=== PATIENT | male | born 1990 | race Asian ===

== ENCOUNTER 2018-10-19 21:50 | Emergency (ER) | payer MEDICAID, OTHER ==
[~2018-10-19] VITALS: Ht 167.6 cm; Wt 65.0 kg
[~2018-10-19 21:50] MED LIST: CLOB15OI17 TP; DIVA500T52 PO; DIVA500T69 PO; OLAN20TA5 PO; OLAN5TAB40 PO
[2018-10-19] MEDS ORDERED: ACETAMINOPHEN 325 MG TABLET PO ONE (23:30)
[2018-10-19] MEDS ORDERED: FLUP5 PO (23:32)
[2018-10-19] MEDS ORDERED: BISA10S PR (23:32)
[2018-10-19] MEDS ORDERED: IBUP-2070 PO (23:32)
[2018-10-19] MEDS ORDERED: [UNRECOGNIZED DRUG - CODE] TP (23:32)
[2018-10-19] MEDS ORDERED: CLOZ25TA4 PO (23:32)
[2018-10-19] MEDS ORDERED: FLUPH2.5I IM (23:32)
[2018-10-19] MEDS ORDERED: CITA-106 PO (23:32)
[2018-10-19] MEDS ORDERED: METH2.5 PO (23:32)
[2018-10-19] MEDS ORDERED: FE PR (23:32)
[2018-10-19] MEDS ORDERED: CLOZ100 PO (23:32)
[2018-10-19] MEDS ORDERED: FLUO15CR2 TP (23:32)
[2018-10-19] MEDS ORDERED: CHLO100T24 PO (23:32)
[2018-10-19] MEDS ORDERED: CLOB525T TP (23:32)
[2018-10-19] MEDS ORDERED: FISH1 PO (23:32)
[2018-10-19] MEDS ORDERED: HYDR30CR3 TP (23:32)
[2018-10-19] MEDS ORDERED: MOM30 PO (23:32)
[2018-10-19] MEDS ORDERED: FERR-89 PO (23:32)
[2018-10-19] MEDS ORDERED: TEMO15C TP (23:32)
[2018-10-19 23:56] LABS: BASOPHILS % (AUTO) 0.3 % (0.0-2.0); EOSINOPHILS % (AUTO) 0 % (1.0-6.0); HEMOGLOBIN 13.4 g/dL (13.5-17.5); LYMPHOCYTES # (AUTO) 1.1 K/uL (1.0-4.8); LYMPHOCYTES % (AUTO) 8.5 % (22.0-44.0); MEAN CORPUSCULAR HEMOGLOBIN 31.9 pg (26.0-34.0); MEAN CORPUSCULAR HGB CONC 34.4 G/dL (31.0-37.0); MEAN CORPUSCULAR VOLUME 93 fL (80-100); MONOCYTES # (AUTO) 0.7 K/uL (0.1-1.0); MONOCYTES % (AUTO) 5.5 % (2.0-9.0); NEUTROPHILS # (AUTO) 11.3 K/uL (1.8-7.7); PLATELET COUNT (AUTO) 171 K/uL (150-450); RED BLOOD CELL COUNT(AUTO) 4.21 MIL/uL (4.50-5.90); RED CELL DISTRIBUTION WIDTH 13.8 % (11.5-14.5)
[2018-10-20 00:01] LABS: NEUTROPHILS % (AUTO) 85.7 % (40.0-70.0)
[2018-10-20 00:23] LABS: INFLUENZA TYPE A NEGATIVE FOR TYPE A (NEGATIVE); INFLUENZA TYPE B NEGATIVE FOR TYPE B (NEGATIVE)
[2018-10-20 01:32] VITALS: BP 126/63
[2018-10-20] MEDS ORDERED: AZITHROMYCIN 250 MG TABLET PO ONE (01:45)
[2018-10-21] MEDS ORDERED: AMOX1TAB16 PO (18:53)
[2018-10-21] MEDS ORDERED: GENTOS OU (18:54)
== END 2018-10-20 02:00 | disposition home or self-care (01) ==
LOC: EMS 21:51
DX: H10.9 Unspecified conjunctivitis (principal); J40 Bronchitis, not specified as acute or chronic; R41.82 Altered mental status, unspecified; F99 Mental disorder, not otherwise specified; I10 Essential (primary) hypertension; Z88.8 Allergy status to other drugs, medicaments and biological substances
CPT/HCPCS: 87430; 87804

== ENCOUNTER 2018-10-21 18:41 | Emergency (ER) | payer OTHER ==
[~2018-10-21] VITALS: Ht 170.2 cm; Wt 67.3 kg
[~2018-10-21 18:41] MED LIST changes: +BISA10S PR; +CHLO100T24 PO; +CITA-106 PO; +CLOB525T TP; +CLOZ100 PO; +CLOZ25TA4 PO; +FE PR; +FERR-89 PO; +FISH1 PO; +FLUO15CR2 TP; +FLUP5 PO; +FLUPH2.5I IM; +HYDR30CR3 TP; +IBUP-2070 PO; +METH2.5 PO; +MOM30 PO; +TEMO15C TP; +[UNRECOGNIZED DRUG - CODE] TP
[2018-10-21] MEDS ORDERED: AMOX1TAB16 PO (18:53)
[2018-10-21] MEDS ORDERED: GENTOS OU (18:54)
[2018-10-21] MEDS ORDERED: SULFAMETHOX/TRIMETH DS 800-160 MG/TABLET PO ONE (19:15)
[2018-10-21] MEDS ORDERED: IBUPROFEN 400 MG TABLET PO ONE (19:30)
[2018-10-21 19:33] VITALS: BP 104/68
== END 2018-10-21 20:22 | disposition home or self-care (01) ==
LOC: EMS 18:42
DX: L03.211 Cellulitis of face (principal); L40.9 Psoriasis, unspecified; I10 Essential (primary) hypertension; Z88.8 Allergy status to other drugs, medicaments and biological substances; Z79.899 Other long term (current) drug therapy

== ENCOUNTER 2019-05-03 17:42 | Inpatient (IN) | payer OTHER ==
[~2019-05-03] VITALS: Ht 172.7 cm; Wt 71.3 kg
[~2019-05-03 17:42] MED LIST changes: -BISA10S PR; +BISA10SU11 PR; -CHLO100T24 PO; -CITA-106 PO; +DIVA-78 PO; -DIVA500T69 PO; -METH2.5 PO; -OLAN20TA5 PO; -OLAN5TAB40 PO
[2019-05-03] MEDS ORDERED: CITA-106 PO (17:54)
[2019-05-03] MEDS ORDERED: CHLO50I IM (17:54)
[2019-05-03] MEDS ORDERED: METH2.5 PO (17:54)
[2019-05-03 18:32] LABS: BASOPHILS % (AUTO) 0.6 % (0.0-2.0); EOSINOPHILS % (AUTO) 0.6 % (1.0-6.0); HEMATOCRIT 37.8 % (41-53); HEMOGLOBIN 12.4 g/dL (13.5-17.5); LYMPHOCYTES # (AUTO) 1.3 K/uL (1.0-4.8); LYMPHOCYTES % (AUTO) 19.2 % (22.0-44.0); MEAN CORPUSCULAR HEMOGLOBIN 31.1 pg (26.0-34.0); MEAN CORPUSCULAR HGB CONC 32.8 G/dL (31.0-37.0); MEAN CORPUSCULAR VOLUME 95 fL (80-100); MONOCYTES # (AUTO) 0.6 K/uL (0.1-1.0); MONOCYTES % (AUTO) 9.3 % (2.0-9.0); NEUTROPHILS # (AUTO) 4.8 K/uL (1.8-7.7); NEUTROPHILS % (AUTO) 70.3 % (40.0-70.0); PLATELET COUNT (AUTO) 199 K/uL (150-450); RED BLOOD CELL COUNT(AUTO) 3.97 MIL/uL (4.50-5.90); RED CELL DISTRIBUTION WIDTH 14.8 % (11.5-14.5)
[2019-05-03 18:43] LABS: ANION GAP 6 mmol/L (8-16); CALCIUM, TOTAL 9.8 mg/dL (8.8-10.5); CARBON DIOXIDE 31 mmol/L (22-29); CHLORIDE 102 mmol/L (98-107); GLOMERULAR FILTR. RATE CALC > 60 mL/min (>60); GLUCOSE,RANDOM 114 mg/dL (70-110); POTASSIUM 4.1 mmol/L (3.5-5.1); SODIUM SERUM 139 mmol/L (136-145); UREA NITROGEN, BLOOD 15 mg/dL (7-18)
[2019-05-03 18:49] LABS: B-TYPE NATRIURETIC PEPTIDE 9 pg/mL (0-100)
[2019-05-03 19:12] LABS: ALANINE AMINOTRANSFERASE 14 U/L (12-78); ALBUMIN 3.5 g/dL (3.4-5.0); ALKALINE PHOSPHATASE 55 U/L (46-116); ASPARTATE AMINOTRANSFERASE 15 U/L (15-37); BILIRUBIN,TOTAL 0.2 mg/dL (0.1-1.0); CREATINE KINASE, TOTAL ONLY 211 U/L (39-308); TOTAL PROTEIN, SERUM 7.6 g/dL (6.4-8.2); VALPROIC ACID 60 mcg/mL (50-100)
[2019-05-03 19:36] LABS: APPEARANCE,URINE CLEAR (CLEAR); BILIRUBIN,URINE NEGATIVE (NEGATIVE); GLUCOSE, URINE (UA) NEGATIVE (NEGATIVE); KETONES,URINE TRACE mg/dL (NEGATIVE); LEUKOCYTE ESTERASE ,URINE NEGATIVE (NEGATIVE); NITRATE,URINE NEGATIVE (NEGATIVE); OCCULT BLOOD,URINE NEGATIVE (NEGATIVE); PROTEIN,URINE NEGATIVE (NEGATIVE)
[2019-05-03 19:41] LABS: AMPHET/METH SCREEN,URINE NEGATIVE (NEGATIVE); BARBITURATE SCREEN, URINE NEGATIVE (NEGATIVE); BENZODIAZEPINES SCREEN,URINE NEGATIVE (NEGATIVE); CANNABINOID SCREEN,URINE NEGATIVE (NEGATIVE); COCAINE SCREEN,URINE NEGATIVE (NEGATIVE); METHADONE SCREEN, URINE NEGATIVE (NEGATIVE); OPIATE SCREEN,URINE NEGATIVE (NEGATIVE)
[2019-05-03 19:43] LABS: PHENCYCLIDINE SCREEN,URINE NEGATIVE (NEGATIVE)
[2019-05-03] MEDS ORDERED: ACETAMINOPHEN 325 MG TABLET PO PRN ×2 (21:00→21:45)
[2019-05-03] MEDS ORDERED: 0.9% SODIUM CHLORIDE 10 ML SYRINGE IVP PRN (21:00)
[2019-05-03] MEDS ORDERED: ONDANSETRON HCL 4 MG/2 ML VIAL IVP PRN (21:45)
[2019-05-03] MEDS ORDERED: BISACODYL 10 MG RECTAL RECTAL SUPPOSITORY PR PRN (21:45)
[2019-05-03] MEDS ORDERED: HYDROCODONE/ACETAMINOPHEN 5-325 MG TABLET PO PRN (21:45)
[2019-05-03] MEDS ORDERED: ZOLPIDEM TARTRATE 5 MG TABLET PO PRN (21:45)
[2019-05-03] MEDS ORDERED: MORPHINE SULFATE 2 MG/ML SYRINGE IVP PRN (21:45)
[2019-05-03] MEDS ORDERED: MAGNESIUM HYDROXIDE SUSPENSION 30 ML UDCUP PO PRN (21:45)
[2019-05-03 23:26] VITALS: BP 112/76
[2019-05-04] MEDS: HEPARIN SODIUM,PORCINE 5,000 UNITS/ML VIAL SQ SCH ×3 (01:11→16:00)
[2019-05-04 04:26] VITALS: BP 117/76
[2019-05-04 05:57] LABS: BASOPHILS % (AUTO) 0.8 % (0.0-2.0); EOSINOPHILS % (AUTO) 3.2 % (1.0-6.0); HEMATOCRIT 39.1 % (41-53); HEMOGLOBIN 12.8 g/dL (13.5-17.5); LYMPHOCYTES # (AUTO) 1.6 K/uL (1.0-4.8); LYMPHOCYTES % (AUTO) 30.5 % (22.0-44.0); MEAN CORPUSCULAR HEMOGLOBIN 31.4 pg (26.0-34.0); MEAN CORPUSCULAR HGB CONC 32.7 G/dL (31.0-37.0); MEAN CORPUSCULAR VOLUME 96 fL (80-100); MONOCYTES # (AUTO) 0.7 K/uL (0.1-1.0); MONOCYTES % (AUTO) 12.9 % (2.0-9.0); NEUTROPHILS # (AUTO) 2.8 K/uL (1.8-7.7); NEUTROPHILS % (AUTO) 52.6 % (40.0-70.0); PLATELET COUNT (AUTO) 205 K/uL (150-450); RED BLOOD CELL COUNT(AUTO) 4.07 MIL/uL (4.50-5.90); RED CELL DISTRIBUTION WIDTH 15.1 % (11.5-14.5)
[2019-05-04 06:23] LABS: ALANINE AMINOTRANSFERASE 17 U/L (12-78); ALBUMIN 3.3 g/dL (3.4-5.0); ALKALINE PHOSPHATASE 56 U/L (46-116); ANION GAP 8 mmol/L (8-16); ASPARTATE AMINOTRANSFERASE 18 U/L (15-37); BILIRUBIN,TOTAL 0.3 mg/dL (0.1-1.0); CALCIUM, TOTAL 9.2 mg/dL (8.8-10.5); CARBON DIOXIDE 30 mmol/L (22-29); CHLORIDE 105 mmol/L (98-107); CREATININE 0.68 mg/dL (0.60-1.30); GLOMERULAR FILTR. RATE CALC > 60 mL/min (>60); GLUCOSE,RANDOM 97 mg/dL (70-110); POTASSIUM 3.7 mmol/L (3.5-5.1); SODIUM SERUM 143 mmol/L (136-145); TOTAL PROTEIN, SERUM 7.1 g/dL (6.4-8.2); UREA NITROGEN, BLOOD 12 mg/dL (7-18)
[2019-05-04 08:09] VITALS: BP 120/79
[2019-05-04] MEDS: DOCUSATE SODIUM 100 MG CAPSULE PO SCH ×2 (08:19→20:29)
[2019-05-04] MEDS: FERROUS SULFATE 325 MG EC TABLET PO SCH (08:19)
[2019-05-04] MEDS: HYDROCORTISONE 2.5% 30 GM CREAM TP SCH ×2 (08:20→20:29)
[2019-05-04] MEDS: DIVALPROEX SODIUM 500 MG DR TABLET PO SCH (08:20)
[2019-05-04] MEDS: PANTOPRAZOLE SODIUM 40 MG DR TABLET PO SCH (08:20)
[2019-05-04] MEDS: FluPHENAZine HCL 5 MG TABLET PO SCH ×2 (08:20→20:29)
[2019-05-04] MEDS ORDERED: CLOBETASOL 0.05% 15 GM OINTMENT TP SCH (09:00)
[2019-05-04] MEDS ORDERED: CLOBETASOL 0.05% 60 GM OINTMENT TP SCH (09:05)
[2019-05-04] MEDS ORDERED: GADOBUTROL 1 MMOL/ML 10 ML VIAL IVP ONE (09:10)
[2019-05-04] MEDS: CLOBETASOL 0.05% 60 GM OINTMENT TP SCH ×2 (09:15→20:29)
[2019-05-04 12:00] VITALS: BP 128/96
[2019-05-04 16:19] VITALS: BP 125/80
[2019-05-04 19:28] VITALS: BP 125/89
[2019-05-04] MEDS ORDERED: CloZAPine 100 MG TABLET PO SCH (21:00)
[2019-05-04] MEDS ORDERED: DIVALPROEX SODIUM 500 MG ER TABLET PO SCH (21:00)
[2019-05-05] MEDS: HEPARIN SODIUM,PORCINE 5,000 UNITS/ML VIAL SQ SCH ×2 (00:07→08:24)
[2019-05-05 00:12] VITALS: BP 128/76
[2019-05-05 04:30] VITALS: BP 123/80
[2019-05-05 07:55] VITALS: BP 115/77
[2019-05-05] MEDS: CLOBETASOL 0.05% 60 GM OINTMENT TP SCH (08:24)
[2019-05-05] MEDS: FluPHENAZine HCL 5 MG TABLET PO SCH (08:24)
[2019-05-05] MEDS: FERROUS SULFATE 325 MG EC TABLET PO SCH (08:24)
[2019-05-05] MEDS: PANTOPRAZOLE SODIUM 40 MG DR TABLET PO SCH (08:24)
[2019-05-05] MEDS: DOCUSATE SODIUM 100 MG CAPSULE PO SCH (08:24)
[2019-05-05] MEDS: HYDROCORTISONE 2.5% 30 GM CREAM TP SCH (08:25)
[2019-05-05] MEDS: DIVALPROEX SODIUM 500 MG DR TABLET PO SCH (08:25)
[2019-05-05 12:11] VITALS: BP 115/67
== END 2019-05-05 15:15 | disposition home or self-care (01) | DRG 204 ==
LOC: EMS 17:43 → 5S 21:55
PROVIDERS: ADMIT Internal Medicine; ATTEND Internal Medicine
DX: R55 Syncope and collapse (principal); F20.0 Paranoid schizophrenia; I10 Essential (primary) hypertension; L30.9 Dermatitis, unspecified; L40.9 Psoriasis, unspecified; K59.00 Constipation, unspecified; D64.9 Anemia, unspecified
CPT/HCPCS: 70450; 70553; 87081; 93005; 93306; 93880; A9585; G0378; G0480; J1644

== ENCOUNTER 2019-07-28 12:50 | Inpatient (IN) | payer MEDICAID, OTHER ==
[~2019-07-28] VITALS: Ht 172.7 cm; Wt 74.4 kg
[~2019-07-28 12:50] MED LIST changes: +CHLO50I IM; +CITA-106 PO; -CLOB525T TP; +METH2.5 PO
[2019-07-28 15:47] LABS: BASOPHILS % (AUTO) 0.6 % (0.0-2.0); EOSINOPHILS % (AUTO) 2.7 % (1.0-6.0); HEMATOCRIT 39.1 % (41-53); LYMPHOCYTES % (AUTO) 35.5 % (22.0-44.0); MEAN CORPUSCULAR HEMOGLOBIN 31.2 pg (26.0-34.0); MEAN CORPUSCULAR HGB CONC 33.3 G/dL (31.0-37.0); MEAN CORPUSCULAR VOLUME 94 fL (80-100); MONOCYTES # (AUTO) 0.5 K/uL (0.1-1.0); MONOCYTES % (AUTO) 9.3 % (2.0-9.0); NEUTROPHILS # (AUTO) 2.9 K/uL (1.8-7.7); NEUTROPHILS % (AUTO) 51.9 % (40.0-70.0); PLATELET COUNT (AUTO) 212 K/uL (150-450); RED BLOOD CELL COUNT(AUTO) 4.17 MIL/uL (4.50-5.90); RED CELL DISTRIBUTION WIDTH 13.9 % (11.5-14.5)
[2019-07-28 16:18] LABS: ANION GAP 9 mmol/L (8-16); CARBON DIOXIDE 29 mmol/L (22-29); CHLORIDE 103 mmol/L (98-107); CREATININE 0.74 mg/dL (0.60-1.30); GLOMERULAR FILTR. RATE CALC > 60 mL/min (>60); GLUCOSE,RANDOM 104 mg/dL (70-110); POTASSIUM 4.1 mmol/L (3.5-5.1); SODIUM SERUM 141 mmol/L (136-145); UREA NITROGEN, BLOOD 16 mg/dL (7-18)
[2019-07-28 16:25] LABS: ALANINE AMINOTRANSFERASE 8 U/L (12-78); ALBUMIN 3.5 g/dL (3.4-5.0); ALKALINE PHOSPHATASE 49 U/L (46-116); ASPARTATE AMINOTRANSFERASE 17 U/L (15-37); BILIRUBIN,TOTAL 0.2 mg/dL (0.1-1.0); TOTAL PROTEIN, SERUM 7.5 g/dL (6.4-8.2)
[2019-07-28] MEDS ORDERED: CLOZ100 PO (17:28)
[2019-07-28] MEDS ORDERED: OLANZapine 5 MG RAPDIS TABLET PO ONE (17:30)
[2019-07-28] MEDS ORDERED: OLANZapine 5 MG RAPDIS TABLET PO PRN (18:30)
[2019-07-28] MEDS ORDERED: ZOLPIDEM TARTRATE 10 MG TABLET PO PRN (18:30)
[2019-07-28] MEDS ORDERED: LORazepam 2 MG TABLET PO PRN (18:30)
[2019-07-28 20:35] VITALS: BP 127/87
[2019-07-28] MEDS ORDERED: INFLUENZA VIRUS VACCINE QVS 2019-20 (3YR+)/PF 60 MCG/0.5 ML SYRINGE IM ONE (20:45)
[2019-07-28] MEDS ORDERED: ONDANSETRON HCL 4 MG TABLET PO PRN (21:15)
[2019-07-28] MEDS ORDERED: GuaiFENesin/D-METHORPHAN [SUGAR-FREE] 200-20MG/10 ML SYRUP UDCUP PO PRN (21:15)
[2019-07-28] MEDS ORDERED: PETROLATUM,WHITE 28 GM JELLY TP PRN (21:15)
[2019-07-28] MEDS ORDERED: LOPERAMIDE HCL 2 MG CAPSULE PO PRN (21:15)
[2019-07-28] MEDS ORDERED: MAG HYDROX/AL HYDROX/SIMETH ES 30 ML SUSPENSION UDCUP PO PRN (21:15)
[2019-07-28] MEDS ORDERED: MAGNESIUM HYDROXIDE SUSPENSION 30 ML UDCUP PO PRN (21:15)
[2019-07-28] MEDS ORDERED: CloNIDine HCL 0.1 MG TABLET PO PRN (21:15)
[2019-07-28] MEDS ORDERED: DOCUSATE SODIUM 100 MG CAPSULE PO PRN (21:15)
[2019-07-28] MEDS ORDERED: ACETAMINOPHEN 325 MG TABLET PO PRN (21:15)
[2019-07-28] MEDS ORDERED: ALBUTEROL SULFATE HFA 90 MCG/PUFF 8 GM INHALER IH PRN (21:15)
[2019-07-28] MEDS ORDERED: NICOTINE 14 MG/24 HOUR PATCH TD PRN (21:15)
[2019-07-29 05:30] VITALS: BP 111/67
[2019-07-29 07:15] LABS: BASOPHILS % (AUTO) 0.6 % (0.0-2.0); EOSINOPHILS % (AUTO) 1.9 % (1.0-6.0); HEMATOCRIT 39.6 % (41-53); HEMOGLOBIN 13.6 g/dL (13.5-17.5); LYMPHOCYTES # (AUTO) 2.1 K/uL (1.0-4.8); LYMPHOCYTES % (AUTO) 34.9 % (22.0-44.0); MEAN CORPUSCULAR HGB CONC 34.2 G/dL (31.0-37.0); MEAN CORPUSCULAR VOLUME 93 fL (80-100); MONOCYTES # (AUTO) 0.6 K/uL (0.1-1.0); MONOCYTES % (AUTO) 9.6 % (2.0-9.0); NEUTROPHILS # (AUTO) 3.3 K/uL (1.8-7.7); PLATELET COUNT (AUTO) 232 K/uL (150-450); RED BLOOD CELL COUNT(AUTO) 4.24 MIL/uL (4.50-5.90); RED CELL DISTRIBUTION WIDTH 13.9 % (11.5-14.5)
[2019-07-29 07:53] LABS: HEMOGLOBIN A1C 5.5 % (4.5-6.2)
[2019-07-29 07:56] LABS: ALANINE AMINOTRANSFERASE 14 U/L (12-78); ALBUMIN 3.8 g/dL (3.4-5.0); ALKALINE PHOSPHATASE 50 U/L (46-116); ANION GAP 9 mmol/L (8-16); ASPARTATE AMINOTRANSFERASE 15 U/L (15-37); BILIRUBIN,TOTAL 0.2 mg/dL (0.1-1.0); CALCIUM, TOTAL 9.6 mg/dL (8.8-10.5); CARBON DIOXIDE 30 mmol/L (22-29); CHLORIDE 102 mmol/L (98-107); CHOL/HDL RATIO 2.4 (4.2-7.3); CHOLESTEROL 142 mg/dL (131-200); CREATININE 0.69 mg/dL (0.60-1.30); FREE T4 (FREE THYROXINE) 0.98 ng/dL (0.76-1.46); GLOMERULAR FILTR. RATE CALC > 60 mL/min (>60); GLUCOSE,RANDOM 93 mg/dL (70-110); HDL CHOLESTEROL 58 mg/dL (40-60); LDL CHOL (CALC.) 74 mg/dL (0-130); POTASSIUM 4.1 mmol/L (3.5-5.1); SODIUM SERUM 141 mmol/L (136-145); THYROID STIMULATING HORMONE 6.35 uIU/mL (0.36-3.74); TOTAL PROTEIN, SERUM 7.7 g/dL (6.4-8.2); TRIGLYCERIDES 52 mg/dL (15-150); UREA NITROGEN, BLOOD 15 mg/dL (7-18)
[2019-07-29] MEDS: CLOBETASOL 0.05% 15 GM CREAM TP SCH ×2 (08:28→17:16)
[2019-07-29] MEDS: OMEGA-3/DHA/EPA/FISH OIL 1,000 MG CAPSULE PO SCH (08:29)
[2019-07-29] MEDS: FluPHENAZine HCL 10 MG TABLET PO SCH ×3 (09:49→16:37)
[2019-07-29] MEDS: GABAPENTIN 300 MG CAPSULE PO SCH ×3 (09:49→16:37)
[2019-07-29] MEDS: VALPROIC ACID 250 MG/5 ML SYRUP UDCUP PO SCH ×2 (09:49→21:00)
[2019-07-29] MEDS: CITALOPRAM HYDROBROMIDE 20 MG TABLET PO SCH (09:49)
[2019-07-29 10:05] VITALS: BP 126/77
[2019-07-29 16:00] VITALS: BP 127/80
[2019-07-29] MEDS: CloZAPine 25 MG TABLET PO SCH (16:37)
[2019-07-29] MEDS: CloZAPine 100 MG TABLET PO SCH (21:00)
[2019-07-30 08:00] VITALS: BP 121/78
[2019-07-30] MEDS: CITALOPRAM HYDROBROMIDE 20 MG TABLET PO SCH (08:08)
[2019-07-30] MEDS: OMEGA-3/DHA/EPA/FISH OIL 1,000 MG CAPSULE PO SCH (08:08)
[2019-07-30] MEDS: CloZAPine 25 MG TABLET PO SCH ×2 (08:08→16:44)
[2019-07-30] MEDS: GABAPENTIN 300 MG CAPSULE PO SCH ×3 (08:08→16:44)
[2019-07-30] MEDS: FluPHENAZine HCL 10 MG TABLET PO SCH ×3 (08:08→16:44)
[2019-07-30] MEDS: CLOBETASOL 0.05% 15 GM CREAM TP SCH ×2 (08:08→16:45)
[2019-07-30] MEDS: VALPROIC ACID 250 MG/5 ML SYRUP UDCUP PO SCH ×2 (08:08→20:18)
[2019-07-30 16:26] VITALS: BP 140/86
[2019-07-30] MEDS: CloZAPine 100 MG TABLET PO SCH (20:18)
[2019-07-31 07:28] LABS: BASOPHILS % (AUTO) 0.7 % (0.0-2.0); EOSINOPHILS % (AUTO) 3.2 % (1.0-6.0); HEMOGLOBIN 12.5 g/dL (13.5-17.5); LYMPHOCYTES # (AUTO) 2.3 K/uL (1.0-4.8); MEAN CORPUSCULAR HGB CONC 32.8 G/dL (31.0-37.0); MEAN CORPUSCULAR VOLUME 95 fL (80-100); MONOCYTES # (AUTO) 0.9 K/uL (0.1-1.0); MONOCYTES % (AUTO) 10.4 % (2.0-9.0); NEUTROPHILS # (AUTO) 5.3 K/uL (1.8-7.7); NEUTROPHILS % (AUTO) 59.7 % (40.0-70.0); PLATELET COUNT (AUTO) 226 K/uL (150-450); RED BLOOD CELL COUNT(AUTO) 4.02 MIL/uL (4.50-5.90); RED CELL DISTRIBUTION WIDTH 14.1 % (11.5-14.5)
[2019-07-31 09:49] VITALS: BP 117/88
[2019-07-31] MEDS: FluPHENAZine HCL 10 MG TABLET PO SCH ×3 (10:02→16:44)
[2019-07-31] MEDS: CITALOPRAM HYDROBROMIDE 20 MG TABLET PO SCH (10:03)
[2019-07-31] MEDS: GABAPENTIN 300 MG CAPSULE PO SCH ×3 (10:03→16:44)
[2019-07-31] MEDS: OMEGA-3/DHA/EPA/FISH OIL 1,000 MG CAPSULE PO SCH (10:03)
[2019-07-31] MEDS: VALPROIC ACID 250 MG/5 ML SYRUP UDCUP PO SCH ×2 (10:04→20:10)
[2019-07-31] MEDS: CloZAPine 25 MG TABLET PO SCH ×2 (10:04→16:44)
[2019-07-31] MEDS: CLOBETASOL 0.05% 15 GM CREAM TP SCH ×2 (10:05→16:44)
[2019-07-31 16:00] VITALS: BP 129/84
[2019-07-31] MEDS: CloZAPine 100 MG TABLET PO SCH (20:10)
[2019-08-01 05:33] VITALS: BP 124/74
[2019-08-01 08:21] VITALS: BP 128/80
[2019-08-01] MEDS: OMEGA-3/DHA/EPA/FISH OIL 1,000 MG CAPSULE PO SCH (09:03)
[2019-08-01] MEDS: GABAPENTIN 300 MG CAPSULE PO SCH ×3 (09:03→16:32)
[2019-08-01] MEDS: FluPHENAZine HCL 10 MG TABLET PO SCH ×3 (09:03→16:32)
[2019-08-01] MEDS: CITALOPRAM HYDROBROMIDE 20 MG TABLET PO SCH (09:04)
[2019-08-01] MEDS: VALPROIC ACID 250 MG/5 ML SYRUP UDCUP PO SCH ×2 (09:05→20:20)
[2019-08-01] MEDS: CloZAPine 25 MG TABLET PO SCH ×2 (09:05→16:32)
[2019-08-01] MEDS: CLOBETASOL 0.05% 15 GM CREAM TP SCH ×2 (09:06→16:35)
[2019-08-01] MEDS: BENZTROPINE MESYLATE 1 MG TABLET PO SCH ×2 (10:54→16:32)
[2019-08-01 16:00] VITALS: BP 135/88
[2019-08-01] MEDS: CloZAPine 100 MG TABLET PO SCH (20:20)
[2019-08-02 06:22] VITALS: BP 119/88
[2019-08-02 08:00] VITALS: BP 141/60
[2019-08-02] MEDS: CloZAPine 25 MG TABLET PO SCH (09:08)
[2019-08-02] MEDS: BENZTROPINE MESYLATE 1 MG TABLET PO SCH (09:08)
[2019-08-02] MEDS: GABAPENTIN 300 MG CAPSULE PO SCH (09:08)
[2019-08-02] MEDS: OMEGA-3/DHA/EPA/FISH OIL 1,000 MG CAPSULE PO SCH (09:08)
[2019-08-02] MEDS: CITALOPRAM HYDROBROMIDE 20 MG TABLET PO SCH (09:08)
[2019-08-02] MEDS: VALPROIC ACID 250 MG/5 ML SYRUP UDCUP PO SCH (09:09)
[2019-08-02] MEDS: CLOBETASOL 0.05% 15 GM CREAM TP SCH (09:10)
[2019-08-02] MEDS ORDERED: BENZ1TAB10 PO (09:17)
[2019-08-02] MEDS ORDERED: OMEG-135 PO (09:20)
[2019-08-02] MEDS ORDERED: VALP250S23 PO (09:20)
[2019-08-02] MEDS ORDERED: FLUP10 PO (09:24)
[2019-08-02] MEDS ORDERED: GABA-531 PO (09:24)
[2019-08-04] MEDS ORDERED: METHOTREXATE SODIUM 2.5 MG TABLET PO SCH ×2 (09:00)
== END 2019-08-02 10:00 | DRG 750 ==
LOC: EMS 12:52 → B3A 18:48
DX: F20.0 Paranoid schizophrenia (principal); J45.31 Mild persistent asthma with (acute) exacerbation; D64.9 Anemia, unspecified; E03.9 Hypothyroidism, unspecified; I10 Essential (primary) hypertension; K59.00 Constipation, unspecified; L40.9 Psoriasis, unspecified; L30.9 Dermatitis, unspecified; Z91.19 Patient's noncompliance with other medical treatment and regimen
CPT/HCPCS: 83036; 84439; 84443; 87081; 90686; G0480

== ENCOUNTER 2019-08-17 23:55 | Emergency (ER) | payer MEDICAID ==
[~2019-08-17] VITALS: Ht 170.2 cm; Wt 72.7 kg
[~2019-08-17 23:55] MED LIST changes: +BENZ1TAB10 PO; -BISA10SU11 PR; -CHLO50I IM; -CLOB15OI17 TP; -CLOZ25TA4 PO; -DIVA-78 PO; -DIVA500T52 PO; -FE PR; -FERR-89 PO; -FLUO15CR2 TP; +FLUP10 PO; -FLUP5 PO; -FLUPH2.5I IM; +GABA-531 PO; -HYDR30CR3 TP; -IBUP-2070 PO; -METH2.5 PO; -MOM30 PO; +OMEG-135 PO; +VALP250S23 PO; -[UNRECOGNIZED DRUG - CODE] TP
[2019-08-18] MEDS ORDERED: FLUO15CR2 TP (00:25)
[2019-08-18] MEDS ORDERED: CHLO25TA23 PO (00:25)
[2019-08-18] MEDS ORDERED: DIPH-543 PO (00:25)
[2019-08-18] MEDS ORDERED: ONDA220I IM (00:25)
[2019-08-18] MEDS ORDERED: DESO515C TP (00:25)
[2019-08-18] MEDS ORDERED: SIME125C PO (00:25)
[2019-08-18] MEDS ORDERED: METH2.5T6 PO (00:25)
[2019-08-18] MEDS ORDERED: DIVA250T4 PO (00:25)
[2019-08-18] MEDS ORDERED: IBUPROFEN 400 MG TABLET PO ONE (02:00)
[2019-08-18] MEDS ORDERED: IBUPROFEN 100 MG/5 ML SUSPENSION UDCUP PO ONE (02:00)
[2019-08-18 03:31] VITALS: BP 120/80
== END 2019-08-18 04:30 | disposition home or self-care (01) ==
LOC: EMS 08-18 00:02
DX: G89.29 Other chronic pain (principal); M79.672 Pain in left foot; F20.9 Schizophrenia, unspecified; I10 Essential (primary) hypertension; L40.9 Psoriasis, unspecified; Z79.899 Other long term (current) drug therapy; Z98.890 Other specified postprocedural states; Z88.8 Allergy status to other drugs, medicaments and biological substances

== ENCOUNTER 2019-08-29 11:07 | Emergency (ER) | payer MEDICAID, OTHER ==
[~2019-08-29] VITALS: Ht 170.2 cm; Wt 77.3 kg
[~2019-08-29 11:07] MED LIST changes: +CHLO25TA23 PO; +DESO515C TP; +DIPH-543 PO; +DIVA250T4 PO; +FLUO15CR2 TP; +METH2.5T6 PO; +ONDA220I IM; +SIME125C PO
[2019-08-29] MEDS ORDERED: ACETAMINOPHEN 500 MG TABLET PO ONE (11:45)
[2019-08-29 11:48] VITALS: BP 112/67
[2019-08-29 11:57] LABS: BASOPHILS % (AUTO) 0.5 % (0.0-2.0); EOSINOPHILS % (AUTO) 3.5 % (1.0-6.0); HEMATOCRIT 39.5 % (41-53); HEMOGLOBIN 13.3 g/dL (13.5-17.5); LYMPHOCYTES # (AUTO) 1.7 K/uL (1.0-4.8); LYMPHOCYTES % (AUTO) 31.4 % (22.0-44.0); MEAN CORPUSCULAR HEMOGLOBIN 31.3 pg (26.0-34.0); MEAN CORPUSCULAR HGB CONC 33.8 G/dL (31.0-37.0); MEAN CORPUSCULAR VOLUME 93 fL (80-100); MONOCYTES # (AUTO) 0.5 K/uL (0.1-1.0); MONOCYTES % (AUTO) 9.8 % (2.0-9.0); NEUTROPHILS % (AUTO) 54.8 % (40.0-70.0); PLATELET COUNT (AUTO) 209 K/uL (150-450); RED BLOOD CELL COUNT(AUTO) 4.26 MIL/uL (4.50-5.90); RED CELL DISTRIBUTION WIDTH 14.3 % (11.5-14.5)
[2019-08-29] MEDS ORDERED: ONDA4 PO (11:58)
[2019-08-29] MEDS ORDERED: DIPH25 PO (11:58)
[2019-08-29 12:06] LABS: ANION GAP 7 mmol/L (8-16); CALCIUM, TOTAL 9.2 mg/dL (8.8-10.5); CARBON DIOXIDE 30 mmol/L (22-29); CHLORIDE 103 mmol/L (98-107); GLOMERULAR FILTR. RATE CALC > 60 mL/min (>60); GLUCOSE,RANDOM 93 mg/dL (70-110); POTASSIUM 3.7 mmol/L (3.5-5.1); SODIUM SERUM 140 mmol/L (136-145); UREA NITROGEN, BLOOD 12 mg/dL (7-18)
[2019-08-29] MEDS ORDERED: LIDOCAINE 1%/EPI 1:200,000/PF 10 ML VIAL INJ ONE (13:15)
[2019-08-29] MEDS ORDERED: BACITRACIN 0.9 GM PACKET OINTMENT TP ONE (13:45)
== END 2019-08-29 15:20 | disposition home or self-care (01) ==
LOC: EMS 11:10
DX: S01.112A Laceration without foreign body of left eyelid and periocular area, initial encounter (principal); I10 Essential (primary) hypertension; F20.9 Schizophrenia, unspecified; Z79.899 Other long term (current) drug therapy; Z88.8 Allergy status to other drugs, medicaments and biological substances; W18.39XA Other fall on same level, initial encounter; Y93.89 Activity, other specified; Y92.89 Other specified places as the place of occurrence of the external cause; Y99.8 Other external cause status
CPT/HCPCS: 12013; 36415; 70450; 80048; 85025; 93005; 99285; J3490

== ENCOUNTER 2019-11-17 16:41 | Emergency (ER) | payer OTHER ==
[~2019-11-17] VITALS: Ht 172.7 cm; Wt 72.7 kg
[~2019-11-17 16:41] MED LIST changes: -DIPH-543 PO; +DIPH25 PO; -DIVA250T4 PO; -FISH1 PO; +ONDA-104 PO; -ONDA220I IM
[2019-11-17 20:31] VITALS: BP 109/79
== END 2019-11-17 20:38 | disposition home or self-care (01) ==
LOC: EMS 16:42
DX: L22 Diaper dermatitis (principal); I10 Essential (primary) hypertension; F20.9 Schizophrenia, unspecified; Z79.899 Other long term (current) drug therapy; Z88.8 Allergy status to other drugs, medicaments and biological substances